=== PATIENT | female | born 1985 | race Native Hawaiian/Other Pacific Islander ===

== ENCOUNTER 2016-08-25 11:33 | Emergency (ER) | payer BC, OTHER ==
[2016-08-25 11:58] VITALS: BMI 30.4
--- NOTE | 2016-08-25 12:57 | OBHP ---
Datetime: 08/25/2016 12:50 IP Adm Impression: , intrauterine ; No Active Labor; Intact Membranes IP Admit Plan: Observation/Evaluation; Discharge home Admit Comment, IP Provider: The patient is a 31-year-old 2 para 1 last menstrual period 04/20 estimated due date 11/06/2016 estimated gestational age 29 weeks. Patient has a history of pre vious delivery at 32 weeks patient referred to labor and delivery for evaluation by PMD. Cathleen ent denies any vaginal bleeding any contractions any leakage of fluid. Patient states care c omplicated by 2 bouts of vaginal bleeding and a sonogram noted on ultrasound. Otherwise unr emarkable Past medical history none Past surgical history none Medications [place] progesterone injections and vitamins No known drug allergies Social history denies alcohol tobacco use Review of systems patient denies headache chest pain shortness of breath palpitations nausea vomit ing vaginal bleeding dysuria or cold intolerance she's appreciably musculoskeletal or neurological co mplaints Vital signs stable afebrile Physical exam she notes Intrauterine at 29+ weeks history of delivery fibronectin today Observation Steroids for lung maturity External monitor Currently on Keflex for urinary tract infection Plan of care discussed with PMD Dr. Stock Pelvic Type - PN: Adequate Extremities - PN: Normal Abdomen - PN: Normal Back - PN: Normal Breast - PN: Not Done Lungs - PN: Normal Heart - PN: Normal Thyroid - PN: Normal Neurologic - PN: Normal HEENT - PN: Normal General - PN: Normal Presentation-Admit: Vertex FHR - Baseline A Provider: 145 Gestation - Est Wks by US: 29.0 Pool Provider: Negative EGA AdmitDate IP: 29.4 Vital Signs Provider: Reviewed IP Chief Complaint: evaluation; Other NICHD Variability Prov Fetus A: Moderate 6-25bpm NICHD Accel Fetus A IP Provider: 10X10 FHR Category Provider Fetus A: Category I NICHD Decel Fetus A IP Provider: None Dilatation, Provider: 0 Effacement, Provider: 0 Station, Provider: -2 Genitourinary Exam: Normal DTRs - PN: Normal
[2016-08-25] MEDS ORDERED: Betamethasone Soluspan 30 mg/5mL Inj Susp IM SCH (13:15)
[2016-08-25] MEDS ORDERED: Lactated Ringer's 1,000 ML IV SCH (14:15)
[2016-08-25] MEDS ORDERED: ceFAZolin 2 GM in Sodium Chloride 0.9% 100 ML IVPB ONE (14:16)
== END 2016-08-25 23:00 | disposition home or self-care (01) ==
LOC: H.EROB2 11:33
DX: O09.93 Supervision of high risk pregnancy, unspecified, third trimester (principal); Z3A.29 29 weeks gestation of pregnancy
CPT/HCPCS: 96372; 99281; J0690; J0702; J7120

== ENCOUNTER 2016-08-26 13:39 | Emergency (ER) | payer BC, OTHER ==
[2016-08-25 11:58] VITALS: BMI 30.4
[2016-08-26] MEDS ORDERED: Betamethasone Soluspan 30 mg/5mL Inj Susp IM ONE (14:01)
== END 2016-08-26 23:00 | disposition home or self-care (01) ==
LOC: H.EROB2 13:39
DX: O47.03 False labor before 37 completed weeks of gestation, third trimester (principal); Z3A.29 29 weeks gestation of pregnancy; Z87.51 Personal history of pre-term labor
CPT/HCPCS: 96372; 99281; J0702

== ENCOUNTER 2016-09-13 17:07 | Emergency (ER) | payer BC, OTHER ==
[2016-09-13 17:36] VITALS: BMI 31.0
[2016-09-13] MEDS ORDERED: Lactated Ringer's 1,000 ML IV SCH (19:15)
[2016-09-13] MEDS ORDERED: Gentamicin 80 mg/2mL Inj. IM SCH (19:45)
[2016-09-13] MEDS ORDERED: Gentamicin 80 mg/2mL Inj. IVPB SCH (19:48)
--- NOTE | 2016-09-13 19:52 | OBHP ---
Datetime: 09/13/2016 19:47 IP Adm Impression: , intrauterine ; No Active Labor IP Admit Plan: Observation/Evaluation; Discharge home Admit Comment, IP Provider: The patient is a 30-year-old 2 para 1 last menstrual period 01/19 estimated due date 11/06/2016 estimated gestational age 32 weeks patient presents to labor and delivery complaining of lower abdominal cramping for 2 days duration patient denies any vaginal blee ding and leakage of fluid she reports good movement patient's care significant for pre vious delivery at 32 weeks Past medical history none Past surgical history none No known drug allergies Obstetrical history one previous normal spontaneous vaginal delivery at [address] tSock Social history denies alcohol tobacco use Review of systems patient denies headache chest pain shortness of breath palpitations dysuria vagi nal bleeding constipation Peter cold intolerance easy bruisability musculoskeletal or neurological co mplaints Vital signs stable afebrile Physical exam see notes Treated in at 32 weeks maternal discomfort and cramping External monitor, IV fluid hydration, fibronectin, observation, UA Patient received steroids at 30 weeks Observation I spoke with PMD Dr. Stock PMD requested dose of gentamicin for urinary tract infection. Pelvic Type - PN: Adequate Extremities - PN: Normal Abdomen - PN: Normal Back - PN: Normal Breast - PN: Normal Lungs - PN: Normal Heart - PN: Normal Thyroid - PN: Normal Neurologic - PN: Normal HEENT - PN: Normal General - PN: Normal Presentation-Admit: Vertex FHR - Baseline A Provider: 145 Gestation - Est Wks by US: 32.0 EGA AdmitDate IP: 32.2 Vital Signs Provider: Reviewed IP Chief Complaint: Maternal discomfort NICHD Variability Prov Fetus A: Moderate 6-25bpm NICHD Accel Fetus A IP Provider: 15X15 NICHD Decel Fetus A IP Provider: None Dilatation, Provider: 0 Effacement, Provider: 0 Station, Provider: 0 Genitourinary Exam: Normal DTRs - PN: Normal Datetime: 08/26/2016 13:50 IP Chief Complaint Other: scheduled 2nd dose of Betamethasone IM FHR Category Provider Fetus A: Category I
[2016-09-13] MEDS ORDERED: Gentamicin 80mg/50ml NS 80 MG/50 ML BAG IVPB SCH (20:00)
[2016-09-13 20:16] LABS: RBC URINE 1 /hpf (0-3); URINE BACTERIA RARE (<OCC); URINE BILIRUBIN NEGATIVE (NEGATIVE); URINE BLOOD NEGATIVE (NEGATIVE); URINE COLOR STRAW (YELLOW); URINE GLUCOSE (UA) NEG (Normal); URINE KETONE NEGATIVE (NEGATIVE); URINE LEUKOCYTE ESTERASE NEG Leu/uL (Negative); URINE PROTEIN NEGATIVE (NEGATIVE); URINE UROBILINOGEN 0.2-1.0 mg/dL (0.2-1.0); WBC URINE 1 /hpf (0-5)
== END 2016-09-13 21:10 | disposition home or self-care (01) ==
LOC: H.EROB2 17:07
DX: O26.93 Pregnancy related conditions, unspecified, third trimester (principal); Z3A.32 32 weeks gestation of pregnancy; R10.2 Pelvic and perineal pain
CPT/HCPCS: 81003; 96374; 99283; J1580; J7120

== ENCOUNTER 2016-10-19 18:35 | Inpatient (IN) | payer BC, OTHER ==
[2016-10-19 20:21] VITALS: BMI 33.5
[2016-10-19] MEDS ORDERED: Lactated Ringer's 1,000 ML IV SCH ×2 (20:45→23:30)
[2016-10-19 21:57] LABS: BASO % 0.3 % (0.0-2.0); EOS # 0.2 K/uL (0.0-0.7); EOS % 1.1 % (0.0-4.0); HEMATOCRIT 34.9 % (34.0-47.0); LYMPH # 3.6 K/uL (1.0-4.3); MEAN CELL VOLUME 71.3 fl (81.0-99.0); MEAN CORPUSCULAR HEMOGLOBIN 22.7 pg (27.0-31.0); MEAN CORPUSCULAR HGB CONC 31.9 g/dL (33.0-37.0); MEAN PLATELET VOLUME 8.9 fl (7.2-11.7); MONO # 0.6 K/uL (0.0-0.8); MONO % 3.8 % (0.0-10.0); NEUT # 10.1 K/uL (1.8-7.0); NEUT % 69.8 % (50.0-75.0); WHITE BLOOD COUNT 14.4 K/uL (4.8-10.8)
[2016-10-19] MEDS: Lactated Ringer's 1,000 ML IV SCH (22:30)
[2016-10-19 22:31] VITALS: BP 101/65; PULSE 77; RESP 18; TEMP 98.2; O2SAT 99
[2016-10-20] MEDS ORDERED: Oxytocin 30 units/LR 500ML 30 U/500 ML BAG IV SCH
[2016-10-20] MEDS: Lactated Ringer's 1,000 ML IV SCH (07:00)
--- NOTE | 2016-10-20 08:31 | OBADHP ---
Datetime: 10/19/2016 20:04 Admit Comment, IP Provider: 30 y/o @ 37.3 weeks presents for induction of labor. Pt was seen by her PMD earlier and reports that the u/s showed decreased amniotic fluid and she was 3cm dilated. No other complaints. Denies VB/LOF/CTX, and reports +FM. PMD: Dr. Stock EDC: 11/06/2016 PObHx: 1 SAB w/o complication @ 8 weeks, 1 32.4 week w/o complication (2014) Care: up to date and compliant with care Labs: Hgb: 10.6, MCV 70.8, RPR neg, Hep B neg, Rubella immune, HIV neg, Blood A+, GBS neg BPP: today 10/26 PMHx: iron def anemia MEDS: Ferrous sulfate 325 BID, PNVs PsurgHx: none SocialHx: denies ETOH, tobacco, drug abuse FamilyHx: unremarkable and noncontributory ALL: NKDA A/P: 30 y/o @ 37.3 weeks here for induction of labor secondary to oligohydramnios -admit to unit -type and screen -IV access - monitoring -oob/ambulate -regular diet -cervidil/pitocin later tonight Colt Payton MD PGY1 @20:15 Pelvic Type - PN: Not Done Extremities - PN: Normal Abdomen - PN: Normal Back - PN: Normal Breast - PN: Normal Lungs - PN: Normal Heart - PN: Normal Thyroid - PN: Normal Neurologic - PN: Normal HEENT - PN: Normal General - PN: Normal Presentation-Admit: Vertex FHR - Baseline A Provider: 158 Vital Signs Provider: Reviewed; Within Normal Limits IP Chief Complaint: Scheduled induction of labor NICHD Variability Prov Fetus A: Moderate 6-25bpm NICHD Accel Fetus A IP Provider: 15X15 FHR Category Provider Fetus A: Category I Genitourinary Exam: Not Done DTRs - PN: Normal EGA AdmitDate IP: 37.3 IP Adm Impression: Term, intrauterine IP Admit Plan: Admit to unit; Initiate labor induction protocol Datetime: 09/13/2016 19:47 Gestation - Est Wks by US: 32.0 NICHD Decel Fetus A IP Provider: None Dilatation, Provider: 0 Effacement, Provider: 0 Station, Provider: 0 Datetime: 08/26/2016 13:50 IP Chief Complaint Other: scheduled 2nd dose of Betamethasone IM Datetime: 08/25/2016 12:50 Pool Provider: Negative
[2016-10-20] MEDS ORDERED: Fentanyl/Bupivacaine HCl 250 ML EPI ONE (09:26)
[2016-10-20] MEDS ORDERED: Lactated Ringer's 1,000 ML IV SCH (12:00)
[2016-10-20] MEDS ORDERED: Lidocaine 1% Inj (20ml) ONE (15:37)
[2016-10-20] MEDS ORDERED: Oxycodone/Acetaminophen 5/325 mg Tab PO PRN (19:57)
[2016-10-20] MEDS ORDERED: Benzocaine/Menthol SPRAY TOP PRN (20:45)
[2016-10-20] MEDS: Oxycodone/Acetaminophen 5/325 mg Tab PO PRN (21:35)
--- NOTE | 2016-10-21 08:25 | OBPPN ---
Datetime: 10/21/2016 08:21 PP Pain Prov: Within normal limits PP Nausea Prov: Denies PP Flatus Prov: Yes PP Breasts Prov: Not Done PP Heart Prov: Normal PP Lungs Prov: Normal PP Abdomen/Uterus Prov: Normal PP Lochia Prov: Not Done PP Vulva/Perineum Prov: Not Done PP CVA Tenderness Prov: Normal PP Extremities Prov: Normal PP C/S Incision Prov: Normal PP Progress Prov: Normal PP Impression Prov: Normal progression PP Plan Prov: Continue present management PP Progress Note Prov: Patient doing well tolerated diet ambulating voiding without difficulty repor ts minimal lochia Vital signs stable afebrile Uterus firm below the umbilicus Extremities no Homans day #1 Encourage ambulation, regular diet, motion is needed, anticipate discharge in a.m. Vital Signs Provider PP: Reviewed
[2016-10-21 09:14] LABS: BASO # 0.1 K/uL (0.0-0.2); BASO % 0.4 % (0.0-2.0); EOS # 0.2 K/uL (0.0-0.7); EOS % 1.3 % (0.0-4.0); HEMATOCRIT 34.5 % (34.0-47.0); LYMPH # 2.8 K/uL (1.0-4.3); LYMPH % 16.3 % (20.0-40.0); MEAN CELL VOLUME 72.1 fl (81.0-99.0); MEAN CORPUSCULAR HEMOGLOBIN 21.9 pg (27.0-31.0); MEAN CORPUSCULAR HGB CONC 30.4 g/dL (33.0-37.0); MEAN PLATELET VOLUME 8.7 fl (7.2-11.7); MONO # 0.5 K/uL (0.0-0.8); MONO % 2.7 % (0.0-10.0); NEUT # 13.7 K/uL (1.8-7.0); NEUT % 79.3 % (50.0-75.0); RED CELL DISTRIBUTION WIDTH 19.4 % (11.5-14.5); WHITE BLOOD COUNT 17.2 K/uL (4.8-10.8)
[2016-10-21] MEDS: Oxycodone/Acetaminophen 5/325 mg Tab PO PRN ×2 (13:14→22:23)
--- NOTE | 2016-10-22 11:31 | OBPPN ---
Datetime: 10/22/2016 11:29 PP Pain Prov: Within normal limits PP Nausea Prov: Denies PP Flatus Prov: Yes PP Breasts Prov: Not Done PP Heart Prov: Normal PP Lungs Prov: Normal PP Abdomen/Uterus Prov: Normal PP Lochia Prov: Not Done PP Vulva/Perineum Prov: Not Done PP CVA Tenderness Prov: Normal PP Extremities Prov: Normal PP Impression Prov: Normal progression PP Plan Prov: Continue present management PP Progress Note Prov: Patient did well reports minimal lochia pain well controlled Vital signs stable afebrile Uterus firm below the umbilicus Extremities no Homans Post day #2 Ambulate, nothing per vagina, patient cleared for discharge, Motrin as needed, follow-up with Dr. Stock Vital Signs Provider PP: Reviewed
--- NOTE | 2016-10-22 11:33 | OBDCSUM ---
Datetime: 10/22/2016 08:14 Discharged to, Provider: Home Follow up at, Provider: OB Disch Instr Activity: Normal activity; May be up to bathroom; May be up for meals; May Shower Disch Instr Diet: Regular Discharge Instructions, Provider: Routine instructions given Discharge Diagnosis, Provider: Term Delivered Discharge Time: 10/22/2016 08:15 Follow up in weeks, Provider: 4-6 weeks Disch Referrals: None Contraception discussed, Prov: Yes Disch Activity Restrictions: Minimize stair-climbing; No sexual activity; Nothing in vagina - Interc ourse, tampons, douche Discharge Comment, Provider: Patient cleared for discharge Contraception after Delivery: Undecided Datetime: 09/13/2016 20:55 Disch Instr Activity: Normal activity; May be up to bathroom; May be up for meals; May Shower Disch Referrals: None Disch Activity Restrictions: Minimize stair-climbing; No sexual activity; Nothing in vagina - Interc ourse, tampons, douche
== END 2016-10-22 13:30 | disposition home or self-care (01) | DRG 775 ==
LOC: H.EROB2 18:35 → H.L&D 20:21 → H.OB/GYN 10-20 20:20
PROVIDERS: ADMIT Obstetrics & Gynecology; ATTEND Obstetrics & Gynecology
PROC: 4A1HXCZ Monitoring of Products of Conception, Cardiac Rate, External Approach (ICD-10-PCS; 2016-10-19)
PROC: 10E0XZZ Delivery of Products of Conception, External Approach (ICD-10-PCS; principal; 2016-10-20)
PROC: 0HQ9XZZ Repair Perineum Skin, External Approach (ICD-10-PCS; 2016-10-20)
DX: O41.03X0 Oligohydramnios, third trimester, not applicable or unspecified (principal); O99.02 Anemia complicating childbirth; Z37.0 Single live birth; Z3A.37 37 weeks gestation of pregnancy; O70.0 First degree perineal laceration during delivery